=== PATIENT | male | born 1940 | race Two or more races ===

== ENCOUNTER → 2017-11-16 | Outpatient (CLI) | payer MEDICARE ==
[2017-06-03 10:10] VITALS: BMI 24.4
[~2017-11-16] MED LIST: ALLO100T70 PO; ASP325; ASPI-1471 PO; ASPI81TA15 PO; ATOR20TA65 PO; COLC0.6T2 PO; ENOX100D5 SC; FURO20TA2 PO; GUIDMUD PO; LISI-357 PO; METH4TAB66 PO; METO50TA PO; OME20PT PO; OMEP-137 PO; OXYGENHOME INH; TRIA15CR40 TP; TRIA5T TOP; WARF-1 PO; WARF2.5T11 PO
[2017-11-16 11:07] LABS: INR 2.51
== END ==
LOC: LAB 10:33
PROVIDERS: ATTEND Internal Medicine
DX: I26.99 Other pulmonary embolism without acute cor pulmonale (principal)
CPT/HCPCS: 36415; 85610

== ENCOUNTER → 2019-02-19 | Outpatient (CLI) | payer MEDICARE ==
[2017-06-03 10:10] VITALS: BMI 24.4
[~2019-02-19] MED LIST changes: +AZIT-17 PO; +PRAV40TA78 PO; +PRED20TA6 PO
[2019-02-19 16:36] LABS: PLATELET COUNT, AUTOMATED 122 K/uL (150-450)
== END ==
LOC: LAB 15:58
PROVIDERS: ATTEND Internal Medicine
DX: I25.10 Atherosclerotic heart disease of native coronary artery without angina pectoris (principal); Z79.01 Long term (current) use of anticoagulants; Z95.2 Presence of prosthetic heart valve; E78.5 Hyperlipidemia, unspecified; R97.20 Elevated prostate specific antigen [PSA]
CPT/HCPCS: 36415; 84443; 85025; G0103; 82040; 82247; 82310; 82374; 82435; 82465; 82565; 82947; 83718; 84075; 84132; 84153; 84155; 84295; 84450; 84460; 84478; 84520

== ENCOUNTER → 2019-02-25 | Outpatient (CLI) | payer MEDICARE ==
[2017-06-03 10:10] VITALS: BMI 24.4
--- NOTE | 2019-02-25 14:42 | RADIOLOGY IMAGING REPORT ---
FACILITY: [facility] PATIENT NAME: Vignesh Nazario : 1940 MR: [id number] V: [id number] EXAM DATE: ORDERING PHYSICIAN: LOBITO LION TECHNOLOGIST: Location: [facility] Patient: Vignesh Nazario : 1940 Visit/Account:[id number] Date of Sevice: 02/25/2019 KIDNEYS EXAMINATION: Renal ultrasound. History: Chronic kidney disease stage II COMPARISON STUDIES: FINDINGS: Kidneys: Right kidney- 8.3 x 5 x 5.1 cm Left kidney- 8.5 x 5.5 x 4.5 cm Uniform and symmetric blood flow in each kidney by Doppler ultrasound. Hydronephrosis: none Resistive index on the right 0.64 and on the left 0.65. There is no evidence of cortical thinning Bladder: Prevoid volume 107 mL. Post void residual 31 mL. Bladder wall appeared mildly trabeculated . Bilateral ureteral jets are present Abdominal aorta and IVC: Aorta and IVC are patent by Doppler ultrasound. IMPRESSION: Normal sonographic appearance to the kidneys Bladder wall appeared mildly trabeculated. Report Dictated By: Francesca Emerson MD at 02/25/2019 2:36 PM Report E-Signed By: Francesca Emerson MD at 02/25/2019 2:37 PM WSN:[id number]
== END ==
LOC: US 01:06
PROVIDERS: ATTEND Internal Medicine
DX: N18.2 Chronic kidney disease, stage 2 (mild) (principal)
CPT/HCPCS: 76705

== ENCOUNTER → 2019-03-01 | Outpatient (CLI) | payer MEDICARE ==
[2017-06-03 10:10] VITALS: BMI 24.4
== END ==
LOC: US 01:21
PROVIDERS: ATTEND Internal Medicine Cardiovascular Disease
DX: I51.7 Cardiomegaly (principal)
CPT/HCPCS: 93306

== ENCOUNTER → 2019-03-01 | Outpatient (CLI) | payer MEDICARE ==
[2017-06-03 10:10] VITALS: BMI 24.4
== END ==
LOC: LAB 12:30
PROVIDERS: ATTEND Internal Medicine
DX: I25.10 Atherosclerotic heart disease of native coronary artery without angina pectoris (principal); Z79.01 Long term (current) use of anticoagulants; Z95.2 Presence of prosthetic heart valve; E78.5 Hyperlipidemia, unspecified; R97.20 Elevated prostate specific antigen [PSA]
CPT/HCPCS: 81001

== ENCOUNTER → 2019-03-22 | Outpatient (CLI) | payer MEDICARE ==
[2017-06-03 10:10] VITALS: BMI 24.4
== END ==
LOC: LAB 10:54
PROVIDERS: ATTEND Internal Medicine Cardiovascular Disease
DX: I35.0 Nonrheumatic aortic (valve) stenosis (principal)
CPT/HCPCS: 36415; 82310; 82374; 82435; 82565; 82947; 84132; 84295; 84520

== ENCOUNTER → 2019-05-02 | Outpatient (CLI) | payer MEDICARE ==
[2017-06-03 10:10] VITALS: BMI 24.4
== END ==
LOC: LAB 09:24
PROVIDERS: ATTEND Internal Medicine Cardiovascular Disease
DX: I35.9 Nonrheumatic aortic valve disorder, unspecified (principal); Z95.3 Presence of xenogenic heart valve
CPT/HCPCS: 36415; 82310; 82374; 82435; 82565; 82947; 84132; 84295; 84520

== ENCOUNTER → 2019-05-27 | Outpatient (CLI) | payer MEDICARE ==
[2017-06-03 10:10] VITALS: BMI 24.4
== END ==
LOC: LAB 09:48
PROVIDERS: ATTEND Internal Medicine Cardiovascular Disease
DX: I35.9 Nonrheumatic aortic valve disorder, unspecified (principal); Z95.3 Presence of xenogenic heart valve
CPT/HCPCS: 36415; 82310; 82374; 82435; 82565; 82947; 84132; 84295; 84520

== ENCOUNTER → 2019-06-03 | Outpatient (CLI) | payer MEDICARE ==
[2017-06-03 10:10] VITALS: BMI 24.4
== END ==
LOC: US 01:05
PROVIDERS: ATTEND Internal Medicine Cardiovascular Disease
DX: I51.7 Cardiomegaly (principal); I34.0 Nonrheumatic mitral (valve) insufficiency; Z95.3 Presence of xenogenic heart valve
CPT/HCPCS: 93306